=== PATIENT | female | born 1995 | race Two or more races ===

== ENCOUNTER 2023-04-18 10:26 | Emergency (ER) | payer OTHER ==
[2023-04-18 10:33] VITALS: BP 125/66; PULSE 66; RESP 18; TEMP 97.9; BMI 33.3
[2023-04-18] MEDS ORDERED: IBUPROFEN 600 MG TABLET (FP) PO ONE ×2 (11:37→11:38)
== END 2023-04-18 12:16 | disposition home or self-care (01) ==
LOC: JERFT 10:26
DX: S99.921A Unspecified injury of right foot, initial encounter (principal); M79.671 Pain in right foot; X50.0XXA Overexertion from strenuous movement or load, initial encounter
CPT/HCPCS: 73610-TC-RT-FY; 73630-TC-RT-FY; 99283-25